=== PATIENT | male | born 1985 | race Caucasian/White ===

== ENCOUNTER 2021-11-29 07:02 | Emergency (ER) | payer MEDICAID ==
[~2021-11-29] VITALS: Ht 172.7 cm; Wt 77.1 kg
[2021-11-29 07:05] VITALS: BP_SYST 133
--- NOTE | 2021-11-29 07:23 | NUR ---
BIBS WITH C/C OF SHORTNESS OF BREATH THAT STARTED LAST NIGHT AT 2030. PT REPORTS BEING IN [place] OVER THE WEEKEND AND DRINKING ALCOHOL AND DOING COCCAINE AND METHAMPHETAMINES. DENIES ANY MED HX. REPORTS STOMACH PAIN, NAUSEA, AND ERAZO 12/17. 12L EKG DONE. PLACED PT IN BED 4. INFORMED DR. FERREIRA AND COVERING RN ORIN.
[2021-11-29] MEDS ORDERED: LORazepam 1 MG TABLET PO ONE (07:45)
--- NOTE | 2021-11-29 08:08 | NUR ---
PT BACK FROM XRAY, STEADY GAIT
--- NOTE | 2021-11-29 09:21 | NUR ---
PT WITH EYES CLOSED, IN NAD/ RESP EVEN AND UNLABORED. DR FERREIRA INFORMED, WAITING FOR DISPO.
[2021-11-29] MEDS ORDERED: LORA-259 PO (09:25)
--- NOTE | 2021-11-29 09:58 | NUR ---
Patient given written and verbal discharge instructions and verbalizes understanding. ER MD discussed with patient the results and treatment provided. Patient in stable condition. ID arm band removed. Rx of ATIVAN given. Patient educated on pain management and to follow up with PMD. Pain Scale . Opportunity for questions provided and answered. Medication side effect fact sheet provided.
[2021-11-29 09:59] VITALS: BP_SYST 133
== END 2021-11-29 09:59 | disposition home or self-care (01) ==
LOC: SED 07:02
DX: F15.10 Other stimulant abuse, uncomplicated (principal); R00.2 Palpitations; F41.9 Anxiety disorder, unspecified; R06.02 Shortness of breath; F14.90 Cocaine use, unspecified, uncomplicated; Z79.899 Other long term (current) drug therapy
CPT/HCPCS: 71045; 99283